=== PATIENT | male | born 1985 | race African-American/Black ===

== ENCOUNTER 2019-03-29 17:55 | Emergency (ER) | payer OTHER ==
[~2019-03-29] VITALS: Ht 177.8 cm; Wt 81.6 kg
[2019-03-29 17:56] VITALS: BP 154/94
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
[2019-03-29 18:16] VITALS: BP 154/94
--- NOTE | 2019-03-29 18:17 | NUR ---
PATIENT [facility] [employer]. PATIENT EXAMINED BY DR. LAMBERT. PATIENT MEDICALLY CLEARED AND RELEASED IN CUSTODY IN STABLE CONDITION. ORIGINAL PRE-BOOK FORM GIVEN TO OFFICER Tania DEWITT 429.
== END 2019-03-29 18:17 ==
LOC: MED 17:55
DX: Z02.89 Encounter for other administrative examinations (principal); G82.20 Paraplegia, unspecified; Z98.890 Other specified postprocedural states
CPT/HCPCS: 99283

== ENCOUNTER 2020-07-15 14:59 | Outpatient (CLI) | payer OTHER | END 2020-07-15 17:58 | disposition home or self-care (01) | LOC: MUS 14:59 | PROVIDERS: ATTEND Radiology Diagnostic Radiology | DX: N39.0 Urinary tract infection, site not specified (principal); N31.9 Neuromuscular dysfunction of bladder, unspecified | CPT/HCPCS: 76770 ==

== ENCOUNTER 2020-11-18 14:17 | Emergency (ER) | payer OTHER ==
[~2020-11-18] VITALS: Ht 177.8 cm; Wt 77.1 kg
[2020-11-18 14:26] VITALS: BP 149/92
--- NOTE | 2020-11-18 14:29 | NUR ---
PT TO AWAIT IN LOBBY
--- NOTE | 2020-11-18 14:50 | NUR ---
CASTRO RINALDI EXAMINING PT
--- NOTE | 2020-11-18 17:02 | NUR ---
PATIENT TO BED 6 VIA WHEELCHAIR
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
[2020-11-18 17:43] LABS: BASOPHILS % (AUTO) 0.6 % (0.0-2.0); EOSINOPHILS % (AUTO) 0.5 % (0.0-4.0); HEMATOCRIT 39.5 % (36-52); HEMOGLOBIN 12.3 g/dL (12.0-18.0); LYMPHOCYTES # (AUTO) 1.4 K/uL (2.0-11.5); LYMPHOCYTES % (AUTO) 16.7 % (20.5-51.1); MEAN CORPUSCULAR HEMOGLOBIN 23 pg (27-31); MEAN CORPUSCULAR HGB CONC 31 g/dL (33-37); MEAN CORPUSCULAR VOLUME 73.4 fL (80-94); MONOCYTES # (AUTO) 0.6 K/uL (0.8-1.0); MONOCYTES % (AUTO) 7.8 % (1.7-9.3); NEUTROPHILS % (AUTO) 74.4 % (42.2-75.2); PLATELET COUNT (AUTO) 184 K/uL (140-450); RED BLOOD CELL COUNT(AUTO) 5.38 MIL/uL (4.20-6.10); RED CELL DISTRIBUTION WIDTH 15.3 % (11.6-13.7); WHITE BLOOD COUNT (AUTO) 8.1 K/uL (4.8-10.8)
[2020-11-18] MEDS ORDERED: KETOROLAC 30 MG/ML VIAL IVP ONE (17:45)
[2020-11-18 17:57] LABS: ALBUMIN 3.6 g/dL (3.4-5.0); ANION GAP 7.6 (8-16); CARBON DIOXIDE 33.2 mmol/L (21-32); CREATININE 0.8 mg/dL (0.6-1.3); TOTAL BILIRUBIN 0.5 mg/dL (0.0-1.0)
[2020-11-18 18:06] LABS: POTASSIUM 2.8 mmol/L (3.5-5.1)
[2020-11-18] MEDS ORDERED: POTASSIUM CHLORIDE 10 MEQ TABER PO ONE (18:10)
[2020-11-18] MEDS ORDERED: POTASSIUM CHL 40 MEQ/ D5-1/2NS 1,000 ML IV ONE (18:10)
--- NOTE | 2020-11-18 18:30 | NUR ---
PT. TAKEN TO CT VIA [facility]BAR[facility]
--- NOTE | 2020-11-18 18:49 | NUR ---
Pt. returned from CT.
--- NOTE | 2020-11-18 19:23 | NUR ---
Pt report given to [facility]. Transfer of care at this time.
--- NOTE | 2020-11-18 19:28 | NUR ---
RECEIVED REPORT FROM VASYL DAVIS. TRANSFER OF CARE AT THIS TIME.
[2020-11-18] MEDS ORDERED: ACET-8386 PO (20:51)
--- NOTE | 2020-11-18 21:00 | NUR ---
PA AT BEDSIDE
--- NOTE | 2020-11-18 21:06 | NUR ---
RT AT BEDSIDE
[2020-11-18 21:55] VITALS: BP 123/93
--- NOTE | 2020-11-22 09:10 | NUR ---
LATE ENTRY- DEXTROSE/NS/KCL DISCONTINUED AT 2155.
== END 2020-11-18 21:55 | disposition home or self-care (01) ==
LOC: MED 14:17
DX: S22.32XA Fracture of one rib, left side, initial encounter for closed fracture (principal); S32.048A Other fracture of fourth lumbar vertebra, initial encounter for closed fracture; E87.6 Hypokalemia; Z79.899 Other long term (current) drug therapy; V89.2XXA Person injured in unspecified motor-vehicle accident, traffic, initial encounter; Y93.89 Activity, other specified; Y92.89 Other specified places as the place of occurrence of the external cause; Y99.8 Other external cause status
CPT/HCPCS: 36415; 71260; 72125; 72128; 72131; 73020; 74176; 74177; 80053; 83735; 85025; 93005; 96365; 96366; 96375; 99285; J1885

== ENCOUNTER 2021-07-09 02:43 | Emergency (ER) | payer OTHER ==
[~2021-07-09] VITALS: Ht 177.8 cm; Wt 81.6 kg
[~2021-07-09 02:43] MED LIST: ACET-8386 PO
[2021-07-09 02:53] VITALS: BP 138/85
[2021-07-09] MEDS ORDERED: ERYT5OIN58 OP ×2 (03:14→03:39)
[2021-07-09 03:36] VITALS: BP 138/85
[2021-07-09] MEDS ORDERED: IBUP-2213 PO (03:39)
== END 2021-07-09 03:36 | disposition home or self-care (01) ==
LOC: MED 02:43
DX: H10.9 Unspecified conjunctivitis (principal); B96.89 Other specified bacterial agents as the cause of diseases classified elsewhere; Z79.899 Other long term (current) drug therapy; Z98.890 Other specified postprocedural states
CPT/HCPCS: 99283

== ENCOUNTER 2023-07-22 14:50 | Emergency (ER) | payer OTHER ==
[~2023-07-22] VITALS: Ht 177.8 cm; Wt 81.6 kg
[~2023-07-22 14:50] MED LIST changes: -ACET-8386 PO; +ACET-8905 PO; +ERYT5OIN58 OP; +IBUP-2213 PO
[2023-07-22 15:23] VITALS: BP 151/95; PULSE 97; RESP 16; TEMP 97.9; O2SAT 98
[2023-07-22] MEDS ORDERED: HYD2.5O TP (16:05)
[2023-07-22] MEDS ORDERED: DOCU-299 PO (16:05)
[2023-07-22] MEDS ORDERED: MIRABULK PO (16:06)
== END 2023-07-22 16:12 | disposition home or self-care (01) ==
LOC: MED 14:50
DX: K62.89 Other specified diseases of anus and rectum (principal); Z79.1 Long term (current) use of non-steroidal anti-inflammatories (NSAID); Z79.2 Long term (current) use of antibiotics; Z79.899 Other long term (current) drug therapy
CPT/HCPCS: 99282

== ENCOUNTER 2023-12-22 | Emergency (ER) | payer OTHER ==
[~2023-12-22] VITALS: Ht 177.8 cm; Wt 77.1 kg
[~2023-12-22] MED LIST changes: +DOCU-299 PO; +HYD2.5O TP; +MIRABULK PO
[2023-12-22 00:06] VITALS: BP 106/60; PULSE 93; RESP 16; TEMP 98.2; O2SAT 99
[2023-12-22] MEDS: NACL 0.9% 1,000 ML IV ONE (02:20)
[2023-12-22 04:15] VITALS: BP 103/55; PULSE 100; RESP 16; TEMP 98.2; O2SAT 99
== END 2023-12-22 04:15 | disposition home or self-care (01) ==
LOC: MED
DX: T83.83XA Hemorrhage due to genitourinary prosthetic devices, implants and grafts, initial encounter (principal); R42 Dizziness and giddiness; Z98.890 Other specified postprocedural states; Z79.899 Other long term (current) drug therapy
CPT/HCPCS: 96360; 99283; J7030